=== PATIENT | female | born 1945 | race Caucasian/White ===

== ENCOUNTER → 2016-06-25 | Outpatient (CLI) | payer MEDICARE, BC ==
[~2016-06-25] MED LIST: HYDR-3516 PO
[2016-06-25 10:25] LABS: AUTOMATED NEUTROPHIL # 1.9 TH/MM3 (1.8-7.7); BASOPHIL # 0.1 TH/MM3 (0-0.2); BASOPHIL % 1.9 % (0.0-2.0); EOSINOPHIL # 0.2 TH/MM3 (0-0.4); EOSINOPHIL % 4.9 % (0.0-4.0); HEMO FLAGS DIFF FINAL; LYMPH % 42.2 % (9.0-44.0); LYMPHOCYTE # 1.9 TH/MM3 (1.0-4.8); MEAN CORPUSCULAR HEMOGLOBIN 29.3 PG (27.0-34.0); MEAN CORPUSCULAR HGB CONC 33.3 % (32.0-36.0); MONO % 8.1 % (0.0-8.0); NEUT % 42.9 % (16.0-70.0); PLATELET COUNT 232 TH/MM3 (150-450); RED BLOOD COUNT 4.77 MIL/MM3 (4.00-5.30); RED CELL DISTRIBUTION WIDTH 12.6 % (11.6-17.2); WHITE BLOOD COUNT 4.5 TH/MM3 (4.0-11.0)
[2016-06-25 10:32] LABS: BLOOD, URINE NEG (NEG); COMMENT (UR) CULT NOT INDICATED; CULTURE IF INDICATED CULT NOT INDICATED; GLUCOSE,URINE NEG (NEG); KETONE, URINE NEG (NEG); MUCUS URINE FEW /lpf (OCC); NITRITE,URINE NEG (NEG); PH, URINE 6.5 (5.0-8.5); SQUAMOUS EPITHELIAL CELL URINE <1 /hpf (0-5); URINE COLOR YELLOW (YELLW/STRAW)
[2016-06-25 10:57] LABS: ALT (GPT) 22 U/L (10-53); ANION GAP 4 MEQ/L (5-15); AST (GOT) 24 U/L (15-37); BLOOD UREA NITROGEN 12 MG/DL (7-18); CHLORIDE 108 MEQ/L (98-107); GLOMERULAR FILTRATION RATE 58 ML/MIN (>89); GLUCOSE,FASTING 102 MG/DL (74-99); POTASSIUM 4.8 MEQ/L (3.5-5.1); SODIUM (NA) 144 MEQ/L (136-145)
[2016-06-25 11:00] LABS: ALKALINE PHOSPHATASE 96 U/L (45-117); TOTAL BILIRUBIN ADULT 0.3 MG/DL (0.2-1.0)
--- NOTE | 2016-06-25 11:09 | RADRPT ---
EXAM DATE/TIME: 06/25/2016 10:46 [place] COMPARISON: No previous studies available for comparison. INDICATIONS : Evaluate for pneumonia, pneumothorax or communicable disease. Pre-Op transanal polypectomy. MEDICAL HISTORY : None. SURGICAL HISTORY : None. ENCOUNTER: Initial ACUITY: 1 day PAIN SCORE: 0/10 LOCATION: Bilateral chest FINDINGS: PA and lateral views of the chest demonstrate the lungs to be symmetrically aerated without evidence of mass, infiltrate or effusion. The cardiomediastinal contours are unremarkable. Osseous structure s are intact. CONCLUSION: No acute disease. David Fallon MD FACR on June 25, 2016 at 11:07 Board Certified Radiologist. This report was verified electronically.
--- NOTE | 2016-06-25 14:13 | EKG ---
Date Performed: 06/25/2016 Time Performed: 10:23:00 PTAGE: 70 years EKG: Sinus rhythm WITH MARKED SINUS ARRHYTHMIA BORDERLINE ECG NO PREVIOUS TRACING DOCTOR: Micky Lewis Interpretating Date/Time 06/25/2016 14:11:38
== END ==
LOC: CPRE 09:33
PROVIDERS: ATTEND Colon & Rectal Surgery
DX: Z01.810 Encounter for preprocedural cardiovascular examination (principal); Z01.811 Encounter for preprocedural respiratory examination; Z01.812 Encounter for preprocedural laboratory examination; D12.8 Benign neoplasm of rectum; R94.31 Abnormal electrocardiogram [ECG] [EKG]
CPT/HCPCS: 36415; 71020; 80053; 81001; 82378; 85025; 93005

== ENCOUNTER → 2016-07-02 | Day surgery (SDC) | payer MEDICARE, BC ==
[~2016-07-02] VITALS: Ht 162.6 cm; Wt 53.0 kg
[~2016-07-02] MED LIST changes: +ACETAMINOPHEN 1000 MG/100 ML VIAL IV ONE; +ACETAMINOPHEN/HYDROcodone 325 MG/5 MG TAB PO PRN; +BUPIVACAINE/EPINEPHRINE 0.5% PF 30 ML VIAL ONE; +DEXAMETHASONE SOD PHOS 4 MG/ML VIAL ONE; +DO NOT ADM ANY ANTICOAGULANT DRUGS XX PRN; +KETOROLAC TROMETHAMINE 30 MG/ML (IVP) VIAL IVP PRN; +LIDOCAINE 0.5%/EPINEPHrine 1:200,000 SOLN 50 ML VIAL ONE; +MIDAZOLAM HCL 2 MG/2 ML VIAL ONE; +ONDANSETRON HCL 4 MG/2 ML VIAL IV PRN; +ONDANSETRON HCL 4 MG/2 ML VIAL IV PUSH ONE; +PROPOFOL 200 MG/20 ML AMP IV ONE; +ceFAZolin 2 GM PREMIX 50 ML IV ONE; +ceFAZolin 2 GM PREMIX 50 ML ONE; +metroNIDAZOLE 500 MG INJ 100 ML IV ONE
[2016-07-02 11:23] VITALS: BP 130/75; PULSE 93; RESP 16; TEMP 98.4; O2SAT 99
[2016-07-02 15:45] VITALS: BP 118/66; PULSE 68; RESP 16; TEMP 97.8; O2SAT 68
--- NOTE | 2016-07-03 08:59 | MP ---
cc: FLACA MCGHEE M.D. [facility] DATE OF SURGERY July 02, 2016 PREOPERATIVE DIAGNOSIS Rectal polyp. POSTOPERATIVE DIAGNOSIS Rectal polyp. PROCEDURE Transanal polypectomy. SURGEON Lolis Mcghee MD ANESTHESIA See anesthesia notes for details. PROCEDURE REPORT The patient was brought to the operating room, and placed in the supine position. After induction of general anesthesia, the patient was placed in candy cane stirrups and all bony prominences were carefully padded. The skin at the perianal area was then prepped and draped in the usual sterile fashion. Digital rectal examination was performed and the polyp was felt just at the apex of my finger, but did prolapse down easily. A Perez bivalve retractor was placed and the polyp was gently grasped and pulled down into the lower rectum where I could operate on it. The polyp was then removed using electrocautery and sent for pathology. The defect was then closed in a running fashion using 3-0 Vicryl, with no sign of any significant bleeding. The rigid sigmoidoscope was then brought onto the field and placed into the rectum and advanced past the suture line to ensure that no inadvertent closure of the rectum itself had occurred. Air was insufflated and the incision was easily visualized and looked clean. The patient tolerated the procedure well. All sponge, needle and instrument counts were correct and the patient was returned to the Post-Anesthesia Care Unit in stable condition. Flaca Mcghee MD KW/SSB /2:40 PM /8:54 AM [facility]
== END | disposition home or self-care (01) ==
LOC: HSDC 10:45 → EDUNIT# 13:00
PROVIDERS: ATTEND Colon & Rectal Surgery
DX: D12.8 Benign neoplasm of rectum (principal)
CPT/HCPCS: 00902; 46910; 86850; 86900; 86901; 88305; J0131; J0690; J1100; J2250; J2405; J3010